=== PATIENT | female | born 2000 | race Caucasian/White ===

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

== ENCOUNTER 2021-02-14 00:51 | Observation (INO) | payer OTHER ==
[2021-02-14] MEDS ORDERED: KETOROLAC TROMETHAMINE 30 MG/1 ML VIAL IM ONE (01:24)
[2021-02-14] MEDS ORDERED: ACETAMINOPHEN 325 MG TABLET (FP) PO ONE (01:25)
[2021-02-14] MEDS ORDERED: ACETAMINOPHEN 325 MG TABLET (FP) ONE (01:32)
[2021-02-14 02:10] LABS: BASO % 0.4 % (0-2.0); EOS % 0.8 % (0-4.5); HEMATOCRIT 36.6 % (32.4-45.2); HEMOGLOBIN 12.4 GM/dL (10.7-15.3); LYMPH % 35.5 % (8-40); MCH 31.9 pg (25.7-33.7); MCHC 33.9 g/dl (32.0-36.0); MEAN CELL VOLUME 94.2 fl (80-96); MEAN PLT VOLUME 9.5 fl (7.5-11.1); MONO % 9.8 % (3.8-10.2); NEUT % 53.5 % (42.8-82.8); PLATELET COUNT 211 K/MM3 (134-434); RBC 3.89 M/mm3 (3.60-5.2); RDW 12.5 % (11.6-15.6); WHITE BLOOD COUNT 8.6 K/mm3 (4.0-10.0)
[2021-02-14 02:25] LABS: ALBUMIN 4.3 g/dl (3.4-5.0); BLOOD UREA NITROGEN 8.1 mg/dL (7-18); CALCIUM 8.9 mg/dL (8.5-10.1)
[2021-02-14] MEDS ORDERED: KETOROLAC TROMETHAMINE 30 MG/1 ML VIAL ONE (02:28)
[2021-02-14 02:30] LABS: CREATININE 0.7 mg/dL (0.55-1.3)
[2021-02-14 02:31] LABS: BILIRUBIN,TOTAL 0.3 mg/dL (0.2-1); TOT PROT 7.8 g/dl (6.4-8.2)
[2021-02-14 04:30] LABS: INR 1.09 (0.83-1.09); PROTHROMBIN TIME (PATIENT) 13.4 SEC (9.7-13.0)
[2021-02-14 04:33] LABS: ACTIVATED PTT 31.8 SECONDS (25.2-36.5)
[2021-02-14 04:40] LABS: CHOLESTEROL 129 mg/dL (50-200); TRIGLYCERIDES 56 mg/dL (0-150)
[2021-02-14 04:41] LABS: LDL CHOLESTEROL (ONLY SJRH) 58 mg/dL (5-100)
[2021-02-14 04:42] LABS: HDL CHOLESTEROL 53 mg/dL (40-60)
[2021-02-14 05:41] LABS: COCAINE, UR NEGATIVE ng/ml (CUTOFF=300); METHADONE, UR NEGATIVE ng/ml (CUTOFF=300); OPIATES, URI NEGATIVE ng/ml (CUTOFF=300); PHENCYCLIDINE,URINE NEGATIVE ng/ml (CUTOFF=25); URINE AMPHETAMINES NEGATIVE ng/ml (CUTOFF=500); URINE BARBITURATES NEGATIVE ng/ml (CUTOFF=200)
[2021-02-14 06:08] LABS: URINE BENZODIAZEPINES NEGATIVE ng/ml (CUTOFF=200)
[2021-02-14 07:39] VITALS: BP 104/60; TEMP 98.4
[2021-02-14 08:02] VITALS: PULSE 64
[2021-02-14] MEDS ORDERED: ENOXAPARIN NA (PORCINE) 40 MG/0.4 ML DISP.SYRIN SQ ONE (08:26)
[2021-02-14] MEDS ORDERED: ENOXAPARIN NA (PORCINE) 40 MG/0.4 ML DISP.SYRIN SQ SCH (10:00)
[2021-02-14 10:19] LABS: HEMATOCRIT 36.4 % (32.4-45.2); HEMOGLOBIN 12.5 GM/dL (10.7-15.3); MCH 31.9 pg (25.7-33.7); MCHC 34.4 g/dl (32.0-36.0); MEAN CELL VOLUME 92.7 fl (80-96); PLATELET COUNT 208 K/MM3 (134-434); RBC 3.93 M/mm3 (3.60-5.2); RDW 12.7 % (11.6-15.6); WHITE BLOOD COUNT 6.1 K/mm3 (4.0-10.0)
[2021-02-14 10:42] LABS: ALBUMIN 3.8 g/dl (3.4-5.0)
[2021-02-14 10:43] LABS: BLOOD UREA NITROGEN 7.9 mg/dL (7-18); CALCIUM 8.9 mg/dL (8.5-10.1); MAGNESIUM 2.1 mg/dL (1.8-2.4)
[2021-02-14 10:46] LABS: CREATININE 0.7 mg/dL (0.55-1.3)
[2021-02-14 10:47] LABS: BILIRUBIN,TOTAL 0.6 mg/dL (0.2-1); PHOSPHOROUS 4.2 mg/dL (2.5-4.9); TOT PROT 7.1 g/dl (6.4-8.2)
== END 2021-02-14 12:57 | disposition home or self-care (01) ==
LOC: JER 00:51 → JERBED 04:55 → INTOOBSV 04:55
PROVIDERS: ADMIT Internal Medicine; ATTEND Nurse Practitioner Acute Care
DX: M62.81 Muscle weakness (generalized) (principal); R20.0 Anesthesia of skin; R00.2 Palpitations; Z29.9 Encounter for prophylactic measures, unspecified; R76.8 Other specified abnormal immunological findings in serum
CPT/HCPCS: 36415; 70450-TC; 71045-TC-FY; 80053; 80061; 80307; 83721; 83735; 84100; 84436; 84439; 84443; 84480; 84484; 84703; 85025; 85027; 85610; 85730; 86769; 86850; 86900; 86901; 93005; 93010; 99285-25; C9803; G0378; U0003; U0005

== ENCOUNTER 2023-11-12 19:50 | Emergency (ER) | payer OTHER ==
[2023-11-12 20:02] VITALS: RESP 18; BMI 21.7
[2023-11-12 21:13] LABS: PH,URINE 6.5 (5.0-8.0); URINE APPEARANCE CLEAR; URINE BILIRUBIN NEGATIVE (NEGATIVE); URINE COLOR YELLOW; URINE GLUCOSE (UA) NEGATIVE (NEGATIVE); URINE KETONE NEGATIVE (NEGATIVE); URINE LEUK ESTERASE NEGATIVE (NEGATIVE); URINE NITRITE NEGATIVE (NEGATIVE); URINE PROTEIN NEGATIVE (NEGATIVE)
[2023-11-12 22:05] LABS: HCG,QUALITATIVE URINE POSITIVE
[2023-11-12] MEDS ORDERED: POLYETHYLENE GLYCOL (HEALTHYLAX) 3350 17 GM PACKET ONE (23:21)
[2023-11-12 23:22] LABS: BASO % 0.2 % (0-2.0); EOS % 0.3 % (0-4.5); HEMATOCRIT 37.4 % (32.4-45.2); HEMOGLOBIN 12.6 GM/dL (10.7-15.3); LYMPH % 24.2 % (8-40); MCH 30.1 pg (25.7-33.7); MCHC 33.7 g/dl (32.0-36.0); MEAN CELL VOLUME 89.4 fl (80-96); MEAN PLT VOLUME 8.9 fl (7.5-11.1); MONO % 11.2 % (3.8-10.2); NEUT % 64.1 % (42.8-82.8); PLATELET COUNT 301 10^3/uL (134-434); RBC 4.18 M/mm3 (3.60-5.2); RDW 15.5 % (11.6-15.6); WHITE BLOOD COUNT 9.9 K/mm3 (4.0-10.0)
[2023-11-12] MEDS: POLYETHYLENE GLYCOL (HEALTHYLAX) 3350 17 GM PACKET PO SCH (23:43)
[2023-11-12 23:50] LABS: POTASSIUM 3.9 mmol/L (3.5-5.1)
[2023-11-12 23:54] LABS: ALBUMIN 3.8 g/dl (3.4-5.0); BLOOD UREA NITROGEN 7.6 mg/dL (7-18)
[2023-11-12 23:57] LABS: CREATININE 0.6 mg/dL (0.55-1.3)
[2023-11-12 23:58] LABS: BILIRUBIN,TOTAL 0.3 mg/dL (0.2-1); TOT PROT 7.8 g/dl (6.4-8.2)
[2023-11-13 00:01] VITALS: BP 113/70; PULSE 72; TEMP 98.3
== END 2023-11-13 02:18 | disposition home or self-care (01) ==
LOC: JER 19:50
DX: O26.891 Other specified pregnancy related conditions, first trimester (principal); R10.30 Lower abdominal pain, unspecified; R10.2 Pelvic and perineal pain; Z3A.01 Less than 8 weeks gestation of pregnancy
CPT/HCPCS: 36415; 76830-TC; 80053; 81003; 84702; 84703; 85025; 86850; 86900; 86901; 87491; 87591; 87661; 99284-25

== ENCOUNTER 2025-03-03 20:46 | Emergency (ER) | payer OTHER ==
[2025-03-03 20:52] VITALS: BP 120/67; PULSE 83; RESP 18; TEMP 97.7; BMI 23.0
[2025-03-03] MEDS: ACETAMINOPHEN 1000 MG/100 ML BAG IVPB ONE (21:45)
[2025-03-03 22:32] LABS: EPI CELLS 29 /uL (0-25.1); HYALINE CASTS 1 /uL (0-3.1); PH,URINE 5.5 (5.0-8.0); URINE APPEARANCE CLOUDY; URINE BACTERIA 514 /uL (0-1359); URINE BILIRUBIN NEGATIVE (NEGATIVE); URINE COLOR DK YELLOW; URINE GLUCOSE (UA) NEGATIVE (NEGATIVE); URINE KETONE 3+ (NEGATIVE); URINE LEUK ESTERASE NEGATIVE (NEGATIVE); URINE NITRITE NEGATIVE (NEGATIVE); URINE PROTEIN 1+ (NEGATIVE); URINE RBC 50 /uL (0-23.9); URINE WBC 15 /uL (0-25.8)
[2025-03-03 22:35] LABS: ABSOLUTE IMMATURE GRANULOCYTES 0.07 x10^3/uL (0.0-0.031); BASOPHILS # 0.02 x10^3/uL (0.01-0.08); EOSINOPHIL % 0.1 % (0.7-5.8); EOSINOPHILS # 0.01 x10^3/uL (0.04-0.36); HEMATOCRIT 38.4 % (34.1-44.9); HEMOGLOBIN 12.8 g/dL (11.2-15.7); MCHC 33.3 g/dl (32.2-35.5); MEAN CELL VOLUME 93.7 fl (79.4-94.8); MEAN PLT VOLUME 10.5 fl (9.4-12.3); MONOCYTE % 5.2 % (4.7-12.5); PLATELET COUNT 250 x10^3/uL (182-369); RDW 12.1 % (12.1-16.5)
[2025-03-03 22:42] LABS: INR 1.08 (0.83-1.09); PROTHROMBIN TIME (PATIENT) 11.8 SEC (9.7-13.0)
[2025-03-03 22:44] LABS: ACTIVATED PTT 28.6 SECONDS (25.2-36.5)
[2025-03-03] MEDS ORDERED: ACETAMINOPHEN INJECTION 100 ML ONE (22:47)
[2025-03-03 22:55] LABS: CHLORIDE 106 mmol/L (98-107); POTASSIUM 4.8 mmol/L (3.5-5.1); SODIUM 138 mmol/L (136-145)
[2025-03-03] MEDS: CEPHALEXIN MONOHYDRATE 500 MG CAPSULE (UD) PO ONE (22:56)
[2025-03-03 22:57] LABS: ALBUMIN 3.9 g/dl (3.4-5.0); ANION GAP 8 mmol/L (4-13); BLOOD UREA NITROGEN 9.4 mg/dL (7-18); CO2 24 mmol/L (21-32); GLUCOSE,RANDOM 100 mg/dL (74-106); MAGNESIUM 1.9 mg/dL (1.8-2.4)
[2025-03-03 23:00] LABS: CREATININE 0.6 mg/dL (0.55-1.3); PHOSPHOROUS 3.9 mg/dL (2.5-4.9); SGOT/AST 22 U/L (15-37); SGPT/ALT 21 U/L (13-61)
[2025-03-03 23:02] LABS: BILIRUBIN,TOTAL 0.4 mg/dL (0.2-1); TOT PROT 7.6 g/dl (6.4-8.2)
[2025-03-03 23:03] LABS: ALK PHOS 129 U/L (45-117)
[2025-03-03 23:30] LABS: CALCIUM 9.9 mg/dL (8.5-10.1)
== END 2025-03-04 00:03 | disposition home or self-care (01) ==
LOC: JER 20:46
DX: O20.0 Threatened abortion (principal); O21.9 Vomiting of pregnancy, unspecified; Z3A.01 Less than 8 weeks gestation of pregnancy
CPT/HCPCS: 36415; 76817-TC; 80053; 81003; 83735; 84100; 84702; 85025; 85610; 85730; 86850; 86900; 86901; 87086; 99284-25